=== PATIENT | male | born 1990 | race Caucasian/White ===

== ENCOUNTER 2023-10-09 00:16 | Emergency (ER) | payer OTHER ==
[~2023-10-09] VITALS: Ht 182.9 cm; Wt 88.6 kg
[2023-10-09 00:32] VITALS: BP 145/91; PULSE 77; RESP 16; TEMP 97.8; O2SAT 99
== END 2023-10-09 04:41 | disposition left against medical advice (07) ==
LOC: ER 00:19
DX: R07.89 Other chest pain (principal); R53.1 Weakness; Z53.21 Procedure and treatment not carried out due to patient leaving prior to being seen by health care provider
CPT/HCPCS: 71045; 93005